=== PATIENT | female | born 1985 | race Two or more races ===

== ENCOUNTER 2021-03-18 18:30 | Emergency (ER) | payer MEDICAID, OTHER ==
[~2021-03-18] VITALS: Ht 165.1 cm; Wt 49.9 kg
[2021-03-18] MEDS ORDERED: LORazepam 2MG/ML-1ML VIAL IV ONE (18:45)
[2021-03-18] MEDS ORDERED: SODIUM CHLORIDE 0.9% 1,000 ML IV ONE (18:45)
[2021-03-18 19:07] LABS: Basophils # (auto) 0 10 ^3/uL (0-0.2); Basophils % (auto) 0.5 % (0.0-2.0); Eosinophils # (auto) 0 10 ^3/uL (0-0.8); Eosinophils % (auto) 0.6 % (0.0-7.0); Hematocrit 34.1 % (36.0-46.0); Hemoglobin 11.7 g/dL (12.2-16.2); Mean Corpuscular Hemoglobin 28.2 pg (28.0-32.0); Mean Corpuscular Hgb Conc. 34.2 g/dL (32.0-36.0); Mean Corpuscular Volume 82.4 fL (80.0-100.0); Monocytes # (auto) 0.4 10 ^3/uL (0-1.3); Monocytes % (auto) 7.8 % (0.0-12.0); Neutrophils # (auto) 2.5 10 ^3/uL (1.6-8.6); Neutrophils % (auto) 50.1 % (37.0-80.0); Red Blood Cells 4.14 10^6/uL (4.0-5.20); Red Cell Distribution Width 16.1 % (11.8-14.3)
[2021-03-18 19:26] LABS: Alanine Aminotransferase 21 U/L (13-56); Albumin 3.6 g/dL (3.4-5.0); Anion Gap 9 (5-15); Aspartate Aminotransferase 12 U/L (15-37); Blood Alcohol < 3.0 mg/dL (0-5); Blood Urea Nitrogen 25 mg/dL (7-18); Calcium 8.5 mg/dL (8.5-10.1); Carbon Dioxide 24 mmol/L (21-32); Chloride 102 mmol/L (98-107); Glucose 389 mg/dL (74-106); Potassium 3.7 mmol/L (3.5-5.1); Sodium 135 mmol/L (136-145)
[2021-03-18 19:29] LABS: Alkaline Phosphatase 66 U/L (45-117); BUN/Creatinine Ratio 29.4; Bilirubin, Total 0.2 mg/dL (0.2-1.0); GFR African American 97 mL/min; GFR Non-African American 80 mL/min; Total Protein 7.5 g/dL (6.4-8.2)
[2021-03-19] MEDS ORDERED: HALOPERIDOL LACTATE 5 MG/ML INJ VIAL IM ONE ×2 (04:45→12:00)
[2021-03-19] MEDS ORDERED: SODIUM CHLORIDE 0.9% 1,000 ML IV ONE (07:45)
[2021-03-19 07:52] LABS: Urine Bacteria FEW /hpf (None Seen); Urine Blood Negative /uL (Negative); Urine Specific Gravity 1.028 (1.001-1.035); Urine WBC 52 /hpf (0 - 5)
[2021-03-19] MEDS ORDERED: risperiDONE 1 MG TAB PO ONE (08:00)
[2021-03-19 08:21] LABS: Alcohol, Urine < 3.0 mg/dL (0-10); Amphetamine Screen, Urine NEGATIVE (NEGATIVE); Barbiturate Scree,Urine NEGATIVE (NEGATIVE); Benzodiazephine Screen, Urine NEGATIVE (NEGATIVE); Cannabinoid Screen, Urine NEGATIVE (NEGATIVE); Cocaine Screen, Urine NEGATIVE (NEGATIVE); Opiate Scree,Urine NEGATIVE (NEGATIVE); Phencyclidine Screen, Urine NEGATIVE (NEGATIVE)
[2021-03-19] MEDS ORDERED: cefTRIAXone 1GM/50ML D5W 50 ML IV ONE ×2 (08:28→08:30)
[2021-03-19] MEDS ORDERED: LORazepam 0.5 MG TAB PO ONE (14:00)
[2021-03-19] MEDS ORDERED: GLIMEPIRIDE 2 MG TAB PO ONE (15:30)
[2021-03-19] MEDS: SULFAMETHOX W/TRIMETH(800/160MG) DS TAB PO ONE (22:00)
[2021-03-19] MEDS: metFORMIN HYDROCHLORIDE 500 MG TAB PO ONE (22:00)
[2021-03-20] MEDS ORDERED: HALOPERIDOL LACTATE 5 MG/ML INJ VIAL IM ONE ×2 (03:30→21:00)
[2021-03-20] MEDS: SULFAMETHOX W/TRIMETH(800/160MG) DS TAB PO ONE (03:47)
[2021-03-20] MEDS: metFORMIN HYDROCHLORIDE 500 MG TAB PO ONE (03:48)
[2021-03-20] MEDS ORDERED: diphenhdrAMINE HCL 25 MG CAP PO ONE (20:30)
[2021-03-21] MEDS ORDERED: diphenhdrAMINE HCL 25 MG CAP PO ONE (03:30)
[2021-03-21] MEDS ORDERED: InsuLIN REG 1unit/0.01ml Soln (100units/ml) SC ONE (07:00)
[2021-03-21] MEDS ORDERED: DEXTROSE (50%) 50ML SYRG IV PRN (07:45)
[2021-03-21] MEDS ORDERED: cefTRIAXone SOD 1,000 MG VL IM ONE (07:45)
[2021-03-21] MEDS ORDERED: LIDOCAINE 2% (LOCAL ANESTH.) PF 5ml SDV ONE (09:47)
[2021-03-21] MEDS ORDERED: HALOPERIDOL LACTATE 5 MG/ML INJ VIAL IM ONE (10:45)
[2021-03-21] MEDS: ACCU-CHEK COMFORT CURVE STRIP VI SCH ×3 (10:55→20:40)
[2021-03-21] MEDS: InsuLIN REG 1unit/0.01ml Soln (100units/ml) SC SCH ×2 (10:58→17:21)
[2021-03-21] MEDS ORDERED: OLANZapine 5 MG TAB PO ONE (14:00)
[2021-03-21] MEDS ORDERED: InsuLIN REG 1unit/0.01ml Soln (100units/ml) SC SCH (22:00)
[2021-03-22 07:30] VITALS: BP 119/84
[2021-03-22] MEDS ORDERED: LORazepam 0.5 MG TAB PO PRN (07:45)
[2021-03-22] MEDS ORDERED: HALOPERIDOL LACTATE 5 MG/ML INJ VIAL IM PRN (07:45)
[2021-03-22] MEDS ORDERED: LORazepam 0.5 MG TAB ONE (08:02)
[2021-03-22] MEDS ORDERED: InsuLIN REG 1unit/0.01ml Soln (100units/ml) ONE (08:03)
[2021-03-22] MEDS: ACCU-CHEK COMFORT CURVE STRIP VI SCH ×2 (08:11→12:21)
[2021-03-22] MEDS: InsuLIN REG 1unit/0.01ml Soln (100units/ml) SC SCH ×2 (08:42→12:32)
[2021-03-22] MEDS ORDERED: risperiDONE 1 MG TAB PO SCH (10:00)
[2021-03-22] MEDS ORDERED: DOCUSATE SOD 100 MG CAP PO ONE (10:30)
== END 2021-03-22 16:01 | disposition left against medical advice (07) ==
LOC: EDBD 18:30 → ER 18:39
DX: F20.9 Schizophrenia, unspecified (principal); E11.9 Type 2 diabetes mellitus without complications; F17.210 Nicotine dependence, cigarettes, uncomplicated; Z20.822 Contact with and (suspected) exposure to COVID-19
CPT/HCPCS: 36415; 71046; 80053; 80307; 80320; 81001; 81025; 82962; 83735; 85025; 87426; 93005; 96365; 96372; 99285; J0696; J1630; J1815; J2001